=== PATIENT | female | born 1985 | race Caucasian/White ===

== ENCOUNTER 2019-03-23 09:37 | Emergency (ER) | payer OTHER ==
[~2019-03-23] VITALS: Ht 165.1 cm; Wt 90.7 kg
== END 2019-03-23 13:55 | disposition short-term general hospital (02) ==
LOC: ED 09:37
DX: S82.831A Other fracture of upper and lower end of right fibula, initial encounter for closed fracture (principal); S82.51XA Displaced fracture of medial malleolus of right tibia, initial encounter for closed fracture; S82.851A Displaced trimalleolar fracture of right lower leg, initial encounter for closed fracture; W17.81XA Fall down embankment (hill), initial encounter; Y93.01 Activity, walking, marching and hiking; Y92.828 Other wilderness area as the place of occurrence of the external cause; Y99.8 Other external cause status